=== PATIENT | female | born 1985 | race Caucasian/White ===

== ENCOUNTER 2019-01-25 17:03 | Emergency (ER) | payer OTHER ==
[2019-01-25 17:24] VITALS: TEMP 97.1
[2019-01-25] MEDS ORDERED: SODIUM CHLORIDE 0.9% 1,000 ML IV STA (17:48)
[2019-01-25 18:14] LABS: Amorphous Sediment,Urine Few /hpf; Appearance,Urine Turbid (Clear); Bilirubin,Urine Negative (Negative); Blood,Urine Small (Negative); Color,Urine Light Yellow; Glucose,Urine (UA) Negative (Negative); Ketones,Urine Negative (Negative); Leukocyte Esterase,Urine Negative (Negative); Mucus,Urine Rare /hpf; Nitrite,Urine Negative (Negative); Protein,Urine Negative (Negative); RBC,Urine 33 /hpf (0-5); Specific Gravity,Urine 1.016 (1.001-1.035); Squamous Epithelial Cell,Urine 1 /hpf (0-4); Urobilinogen,Urine <2.0 mg/dL (<2.0)
[2019-01-25 20:11] LABS: Basophils % (A) 0 %; Eosinophils % (A) 0 %; HCT 37.3 % (34.0-46.0); HGB 11.8 gm/dL (11.4-16.0); Hypochromasia Slight; Lymphocytes # (A) 1.1 k/uL (1.0-4.8); Lymphocytes % (A) 9 %; MCH 26.3 pg (25.0-35.0); MCHC 31.6 g/dL (31.0-37.0); Monocytes # (A) 0.3 k/uL (0-1.0); Monocytes % (A) 2 %; Neutrophils # (A) 11.1 k/uL (1.3-7.7); Neutrophils % (A) 88 %; Platelet Count 330 k/uL (150-450); RDW 15.3 % (11.5-15.5); WBC 12.5 k/uL (3.8-10.6)
[2019-01-25 20:13] LABS: ALT 16 U/L (9-52); AST 28 U/L (14-36); African American GFR (CKD) >90 (>60 ml/min/1.73 sqM); Albumin 4.1 g/dL (3.5-5.0); Alkaline Phosphatase 56 U/L (38-126); Anion Gap 9 mmol/L; Blood Urea Nitrogen 15 mg/dL (7-17); Calcium 8.8 mg/dL (8.4-10.2); Carbon Dioxide 21 mmol/L (22-30); Chloride 112 mmol/L (98-107); Glucose 74 mg/dL (74-99); Sodium 142 mmol/L (137-145); Total Bilirubin 0.3 mg/dL (0.2-1.3); Total Protein 6.9 g/dL (6.3-8.2)
[2019-01-25 20:15] LABS: Potassium 4.2 mmol/L (3.5-5.1)
--- NOTE | 2019-01-25 20:28 | CT ---
EXAMINATION TYPE: CT abdomen pelvis w con DATE OF EXAM: 01/25/2019 COMPARISON: NONE HISTORY: 33-year-old female RLQ pain TECHNIQUE: Contiguous axial scanning of the abdomen and pelvis following administration of 100 ml Iso muriel 300 IV contrast. Delayed images through the kidneys and coronal/sagittal reconstructions perform ed. CT DLP: 787.4 mGycm Automated exposure control for dose reduction was used. FINDINGS: Heart normal size without pericardial effusion. Lung bases clear without pleural effusion. No focal liver lesion or biliary ductal dilatation. Portal venous system is seen. Gallbladder, adrenal glands, left kidney, spleen, and pancreas appear within normal limits. 3 nonobstructive right renal calculi measuring up to 4 mm. There is mild right-sided pelvocaliectasis and mild ureteral dilatation. There may be mild urothelial enhancement of the right ureter is well. No suspicious calcifications seen along the course of the right ureter. Overall enhancement of the ri ght kidney is symmetrical to the contralateral side. No dilated small bowel, free fluid, or free air. No mesenteric or retroperitoneal lymphadenopathy. Mild overall stool burden. No pericolonic inflammatory change. Uterus anteverted. Ovaries are visualized. Mild cul-de-sac free fluid likely physiologic. Platelets i n the left side of the pelvis. Bones: No osseous destructive process. IMPRESSION: 1. MILD RIGHT-SIDED PELVICALIECTASIS AND MILD RIGHT URETERIC DILATATION. THERE MAY BE SOME MILD UROTH ELIAL ENHANCEMENT WELL. CORRELATE FOR THE POSSIBILITY OF A RECENTLY PASSED STONE OR AN ASCENDING R IGHT-SIDED URINARY TRACT INFECTION. OVERALL SYMMETRICAL ENHANCEMENT OF THE KIDNEYS ARGUING AGAINST TH E PRESENCE OF PYELONEPHRITIS AT THIS TIME. CLINICALLY CORRELATE. 2. NONOBSTRUCTIVE RIGHT-SIDED NEPHROLITHIASIS MEASURING UP TO 4 MM.
[2019-01-25] MEDS ORDERED: MORPHINE SULFATE 4 MG/ML SYRINGE IVP STA (21:27)
[2019-01-25] MEDS ORDERED: ONDANSETRON 4 MG/2 ML VIAL IVP STA (21:27)
--- NOTE | 2019-01-25 21:37 | ED ---
Abdominal Pain HPI - General Chief Complaint: Abdominal Pain Stated Complaint: Abd Pain Time Seen by Provider: 01/25/19 17:20 Source: patient, EMS Mode of arrival: EMS Limitations: no limitations - History of Present Illness Initial Comments: The patient is a 33-year-old female presents to the emergency department with reported abdominal pain. She describes it as a aching sensation which is located in her right lower quadrant. States that she's had worsening of this pain over the past 2 days. States that it will wax and wane on her. The pain became persistent just prior to hospital arrival. She began having several episodes of nausea with vomiting. Denies hematemesis. She reports to chills however no fevers. Reports that she has dysuria and hematuria. Denies any difficulty urinating. No history of similar in the past. She denies any abnormal vaginal bleeding or discharge. Her last menstrual cycle was 2-3 weeks ago. She is unsure if she is . She denies any chest pain or shortness of breath. Denies any diarrhea, constipation, melanotic stools or hematochezia. There are no other alleviating, precipitating or modifying factors Location: [facility] - Related Data Home Medications Medication Instructions Recorded Confirmed Bismuth Subsalicylate 524 mg PO DAILY PRN 01/25/19 01/25/19 [Pepto-Bismol] Calcium Carbonate [Tums] 500 mg PO TID PRN 01/25/19 01/25/19 Cetirizine HCl [Zyrtec] 10 mg PO DAILY 01/25/19 01/25/19 Dextroamphetamine/Amphetamine 30 mg PO BID 01/25/19 01/25/19 [Adderall] EPINEPHrine (Auto Inject) [Epipen] 0.3 mg IM ONCE PRN 01/25/19 01/25/19 Ferrous Sulfate [Feosol] 325 mg PO DAILY 01/25/19 01/25/19 Omeprazole 20 mg PO BID 01/25/19 01/25/19 Rizatriptan Benzoate [Maxalt] 10 mg PO DAILY PRN 01/25/19 01/25/19 Topiramate [Topamax] 100 mg PO DAILY 01/25/19 01/25/19 Vitamin D 5,000units 10,000 units PO DAILY 09/01/19 09/01/19 Previous Rx's Medication Instructions Recorded Hydrocodone/Acetaminophen [[place] 1 tab PO Q6HR PRN #12 tab 01/25/19 5-325] Ibuprofen [Motrin] 600 mg PO Q8HR PRN #20 tab 01/25/19 Ondansetron Odt [Zofran Odt] 4 mg PO Q8HR PRN #15 tab 01/25/19 Allergies Allergy/AdvReac Type Severity Reaction Status Date / Time No Known Allergies Allergy Unverified 01/25/19 18:16 Review of Systems ROS Statement: Those systems with pertinent positive or pertinent negative responses have been documented in the HPI. ROS Other: All systems not noted in ROS Statement are negative. Past Medical History Past Medical History: Asthma Additional Past Medical History / Comment(s): migraines History of Any Multi-Drug Resistant Organisms: None Reported Past Surgical History: Section Additional Past Surgical History / Comment(s): cyst removal Past Psychological History: No Psychological Hx Reported Smoking Status: Current every day smoker Past Alcohol Use History: Occasional Past Drug Use History: Marijuana General Exam Limitations: no limitations General appearance: alert, in no apparent distress Head exam: Present: atraumatic, normocephalic, normal inspection Eye exam: Present: normal appearance, PERRL, EOMI. Absent: scleral icterus, conjunctival injection, periorbital swelling ENT exam: Present: normal exam, mucous membranes moist Neck exam: Present: normal inspection. Absent: tenderness, meningismus, lymphadenopathy Respiratory exam: Present: normal lung sounds bilaterally. Absent: respiratory distress, wheezes, rales, rhonchi, stridor Cardiovascular Exam: Present: regular rate, normal rhythm, normal heart sounds. Absent: systolic murmur, diastolic murmur, rubs, gallop, clicks GI/Abdominal exam: Present: soft, tenderness (right lower quadrant tenderness. No peritoneal signs), normal bowel sounds. Absent: distended, guarding, rebound, rigid Extremities exam: Present: normal inspection, full ROM, normal capillary refill. Absent: tenderness, pedal edema, joint swelling, calf tenderness Back exam: Present: normal inspection Neurological exam: Present: alert, oriented X3, CN II-XII intact Psychiatric exam: Present: normal affect, normal mood Skin exam: Present: warm, dry, intact, normal color. Absent: rash Course Vital Signs 01/25/19 01/25/19 01/25/19 17:16 19:50 21:35 Temperature 97.1 F L Pulse Rate 51 L 60 61 Respiratory 16 16 18 Rate Blood Pressure 163/89 126/79 127/85 O2 Sat by Pulse 99 96 99 Oximetry 01/25/19 21:43 Temperature 97.1 F L Pulse Rate 61 Respiratory 18 Rate Blood Pressure 127/85 O2 Sat by Pulse 99 Oximetry Medical Decision Making - Medical Decision Making Upon arrival the patient is placed into room 28. She is hooked up to continuous pulse ox and cardiac monitoring. A 12-lead EKG is performed the patient. Peripheral IV had been previously established by EMS. They did provide her with 4 mg of Zofran and 4 mg of morphine. I did provide the patient with a liter of normal saline. Laboratory studies were conducted. The patient was sent for a CT of her abdomen and pelvis. Upon return of the results the patient does have red blood cells in her urine. CT of her abdomen and pelvis demonstrates mild right-sided pelvicaliectasis and mild right ureter dilation. Correlate for the possibility of a recently passed stone. There is also nonobstructive right- sided nephrolithiasis measuring up to 4 mm. I did inform the patient of the laboratory studies. The patient reports that she does believe that she passed the stone in the bathroom approximately 10 minutes before I arrived into the room. She does state that she feels nauseated and has pain because of it. I did provide her with an additional 4 mg of morphine and 4 mg of Zofran. At this time the patient's feels appropriate for discharge. She will be given a prescription for Zofran, Motrin and [place]. She does sign an opioid talking form. I did request that she follow up with Dr. Barros from urology. She is also to follow-up with her primary care physician in 2-4 days. If the patient has any new or worsening symptoms, she should return to the emergency room. The patient was in agreement with the treatment plan and she was discharged home in stable condition - Lab Data Result diagrams: 01/25/19 17:56 01/25/19 17:56 Lab Results 01/25/19 01/25/19 01/25/19 Range/Units 17:56 17:56 17:56 WBC 12.5 H (3.8-10.6) k/uL RBC 4.50 (3.80-5.40) m/uL Hgb 11.8 (11.4-16.0) gm/dL Hct 37.3 (34.0-46.0) % MCV 83.0 (80.0-100.0) fL MCH 26.3 (25.0-35.0) pg MCHC 31.6 (31.0-37.0) g/dL RDW 15.3 (11.5-15.5) % Plt Count 330 (150-450) k/uL Neutrophils % 88 % Lymphocytes % 9 % Monocytes % 2 % Eosinophils % 0 % Basophils % 0 % Neutrophils # 11.1 H (1.3-7.7) k/uL Lymphocytes # 1.1 (1.0-4.8) k/uL Monocytes # 0.3 (0-1.0) k/uL Eosinophils # 0.0 (0-0.7) k/uL Basophils # 0.0 (0-0.2) k/uL Hypochromasia Slight Sodium 142 (137-145) mmol/L Potassium 4.2 (3.5-5.1) mmol/L Chloride 112 H (98-107) mmol/L Carbon Dioxide 21 L (22-30) mmol/L Anion Gap 9 mmol/L BUN 15 (7-17) mg/dL Creatinine 0.75 (0.52-1.04) mg/dL Est GFR (CKD-EPI)AfAm >90 (>60 ml/min/1.73 sqM) Est GFR (CKD-EPI)NonAf >90 (>60 ml/min/1.73 sqM) Glucose 74 (74-99) mg/dL Plasma Lactic Acid Rojas 1.4 (0.7-2.0) mmol/L Calcium 8.8 (8.4-10.2) mg/dL Total Bilirubin 0.3 (0.2-1.3) mg/dL AST 28 (14-36) U/L ALT 16 (9-52) U/L Alkaline Phosphatase 56 (38-126) U/L Total Protein 6.9 (6.3-8.2) g/dL Albumin 4.1 (3.5-5.0) g/dL Lipase 187 (23-300) U/L Urine Color Urine Appearance (Clear) Urine pH (5.0-8.0) Ur Specific [place] (1.001-1.035) Urine Protein (Negative) Urine Glucose (UA) (Negative) Urine Ketones (Negative) Urine Blood (Negative) Urine Nitrite (Negative) Urine Bilirubin (Negative) Urine Urobilinogen (<2.0) mg/dL Ur Leukocyte Esterase (Negative) Urine RBC (0-5) /hpf Ur Squamous Epith Cells (0-4) /hpf Amorphous Sediment (None) /hpf Urine Mucus (None) /hpf Urine HCG, Qual (Not Detectd) 01/25/19 01/25/19 Range/Units Unknown Unknown WBC (3.8-10.6) k/uL RBC (3.80-5.40) m/uL Hgb (11.4-16.0) gm/dL Hct (34.0-46.0) % MCV (80.0-100.0) fL MCH (25.0-35.0) pg MCHC (31.0-37.0) g/dL RDW (11.5-15.5) % Plt Count (150-450) k/uL Neutrophils % % Lymphocytes % % Monocytes % % Eosinophils % % Basophils % % Neutrophils # (1.3-7.7) k/uL Lymphocytes # (1.0-4.8) k/uL Monocytes # (0-1.0) k/uL Eosinophils # (0-0.7) k/uL Basophils # (0-0.2) k/uL Hypochromasia Sodium (137-145) mmol/L Potassium (3.5-5.1) mmol/L Chloride (98-107) mmol/L Carbon Dioxide (22-30) mmol/L Anion Gap mmol/L BUN (7-17) mg/dL Creatinine (0.52-1.04) mg/dL Est GFR (CKD-EPI)AfAm (>60 ml/min/1.73 sqM) Est GFR (CKD-EPI)NonAf (>60 ml/min/1.73 sqM) Glucose (74-99) mg/dL Plasma Lactic Acid Rojas (0.7-2.0) mmol/L Calcium (8.4-10.2) mg/dL Total Bilirubin (0.2-1.3) mg/dL AST (14-36) U/L ALT (9-52) U/L Alkaline Phosphatase (38-126) U/L Total Protein (6.3-8.2) g/dL Albumin (3.5-5.0) g/dL Lipase (23-300) U/L Urine Color Light Yellow Urine Appearance Turbid H (Clear) Urine pH 8.0 (5.0-8.0) Ur Specific [place] 1.016 (1.001-1.035) Urine Protein Negative (Negative) Urine Glucose (UA) Negative (Negative) Urine Ketones Negative (Negative) Urine Blood Small H (Negative) Urine Nitrite Negative (Negative) Urine Bilirubin Negative (Negative) Urine Urobilinogen <2.0 (<2.0) mg/dL Ur Leukocyte Esterase Negative (Negative) Urine RBC 33 H (0-5) /hpf Ur Squamous Epith Cells 1 (0-4) /hpf Amorphous Sediment Few H (None) /hpf Urine Mucus Rare H (None) /hpf Urine HCG, Qual Not Detected (Not Detectd) - EKG Data EKG Comments: EKG demonstrates a normal sinus rhythm with a ventricular rate of 56. PA interval 182. QRS 74. QTC 451. There are no acute ST segment elevations or depressions concerning for ischemic changes. Disposition Clinical Impression: Hematuria, Kidney stone Disposition: HOME SELF-CARE Condition: Stable Instructions (If sedation given, give patient instructions): Kidney Stones (ED) Additional Instructions: Please follow-up with your primary care doctor in 2-4 days. Follow up with the urologist within one week. Return to the emergency room for any new or worsening symptoms. Prescriptions: Ibuprofen [Motrin] 600 mg PO Q8HR PRN #20 tab PRN Reason: Pain Hydrocodone/Acetaminophen [[place] 5-325] 1 tab PO Q6HR PRN #12 tab PRN Reason: Pain Ondansetron Odt [Zofran Odt] 4 mg PO Q8HR PRN #15 tab PRN Reason: Nausea Is patient prescribed a controlled substance at d/c from ED?: Yes When asked, does pt state using other controlled substances?: No If prescribed controlled substance>3 days was MAPS reviewed?: Prescribed <3 Days If opioid is for acute pain is fill amount 7 days or less?: Yes If Rx opioid, was Start Talking consent form obtained?: Yes Referrals: Yoni Lee Jr, [Primary Care Provider] - 1-2 days Jonathan Peters MD [STAFF PHYSICIAN] - 1-2 days Time of Disposition: 21:36
[2019-01-25 21:38] VITALS: BP 127/85; PULSE 61; RESP 18
== END 2019-01-25 22:01 | disposition home or self-care (01) ==
LOC: EC 17:03
DX: N20.0 Calculus of kidney (principal); N28.82 Megaloureter; G43.909 Migraine, unspecified, not intractable, without status migrainosus; F17.200 Nicotine dependence, unspecified, uncomplicated; Z79.899 Other long term (current) drug therapy
CPT/HCPCS: 99285; 96374; 96375; 96360; 96361 ×3; 36415; 93005; 80053; 83605; 83690; 85025; 81001; 81025; 74177; J2270; J2405; Q9967

== ENCOUNTER → 2020-04-27 | Outpatient (CLI) | payer OTHER ==
--- NOTE | 2020-04-27 12:03 | US ---
EXAMINATION TYPE: US abdomen complete DATE OF EXAM: 04/27/2020 COMPARISON: CT dated 01/25/2019 CLINICAL HISTORY: N83.201 cyst of right ovary. RLQ pain EXAM MEASUREMENTS: Liver Length: 13.5 cm Gallbladder Wall: 0.2 cm CBD: 0.3 cm Spleen: 10.1 cm Right Kidney: 11.4 x 4.3 x 4.8 cm Left Kidney: 11.5 x 5.0 x 4.3 cm Pancreas: visualized portions appear wnl Liver: wnl Gallbladder: no evidence of stones Evidence for sonographic Belcher's sign: no CBD: wnl Spleen: wnl Right Kidney: echogenic area lower pole = 0.5cm Left Kidney: no evidence of hydronephrosis Upper IVC: wnl Abd Aorta: wnl The liver is homogenous. The intrahepatic portion of the IVC and proximal abdominal aorta are within normal limits. There is no evidence of cholelithiasis. Common bile duct is unremarkable. The visu alized portions of the pancreas are homogenous. The spleen is unremarkable. Kidneys are symmetric a nd free of hydronephrosis. No renal lesions are seen. IMPRESSION: Likely there is nonobstructive calculus lower pole right kidney
--- NOTE | 2020-04-27 12:06 | US ---
EXAMINATION TYPE: US pelvic complete DATE OF EXAM: 04/27/2020 COMPARISON: CT 01/25/2019 CLINICAL HISTORY: N83.201 cyst of right ovary. RLQ pain for 3 months. History of and cyst r emoval from right ovary TECHNIQUE: Transabdominal (TA). Date of LMP: 2 weeks ago EXAM MEASUREMENTS: Uterus: 10.4 x 4.4 x 6.9 cm Endometrial Stripe: 0.3 cm Right Ovary: 3.2 x 1.5 x 3.5 cm Left Ovary: 5.4 x 3.3 x 4.6 cm 1. Uterus: Anteverted heterogeneous 2. Endometrium: appears wnl 3. Right Ovary: dominant follicle = 1.3cm 4. Left Ovary: cystic area = 4.8 x 2.8 x 4.3cm 5. Bilateral Adnexa: wnl 6. Posterior cul-de-sac: wnl IMPRESSION: There is a left ovarian cyst present. Dominant right ovarian follicle noted is smaller.
== END | disposition home or self-care (01) ==
LOC: RADUSWWP 09:07
PROVIDERS: ATTEND Family Medicine
DX: N83.202 Unspecified ovarian cyst, left side (principal)
CPT/HCPCS: 76700; 76856

== ENCOUNTER → 2021-02-27 | Outpatient (CLI) | payer OTHER ==
--- NOTE | 2021-02-27 11:42 | CT ---
EXAMINATION TYPE: CT brain wo con DATE OF EXAM: 02/27/2021 COMPARISON: None. HISTORY: Headache, numbness, tingling in both hands and face for [address] DLP: 1036.0 mGycm. Automated Exposure Control for Dose Reduction was Utilized. TECHNIQUE: CT scan of the head is performed without contrast. FINDINGS: There is no acute intracranial hemorrhage, mass effect, or midline shift identified. The ventricles and sulci are within normal limits in size. Logan-white matter differentiation is maintai aggie. The globes are intact and the visualized sinuses are clear. IMPRESSION: Unremarkable study. MRI noted more sensitive in identifying subtle white matter changes.
== END | disposition home or self-care (01) ==
LOC: RADCTMAIN 02-24 16:21
PROVIDERS: ATTEND Family Medicine
DX: R51.9 Headache, unspecified (principal); R20.0 Anesthesia of skin
CPT/HCPCS: 70450

== ENCOUNTER → 2021-11-06 | Outpatient (CLI) | payer OTHER ==
--- NOTE | 2021-11-06 09:21 | US ---
EXAMINATION TYPE: US pelvis complete transvag DATE OF EXAM: 11/06/2021 COMPARISON: CT, US CLINICAL HISTORY: R10.10 UPPER AB PAIN R11.2 NAUSEA. Pain. Hx C section, cyst removed from right ova ry. Patient is on control pills. . TECHNIQUE: Transvaginal (TV) and Transabdominal (TA) . Transabdominal sonographic images of the pel vis were acquired. Transvaginal sonographic images were medically necessary to better assess the fol lowing anatomy: Ovaries Date of LMP: Unknown per patient. EXAM MEASUREMENTS: Uterus: 12.0 x 6.1 x 8.0 cm Endometrial Stripe: 0.34 cm Right Ovary: Not seen Area seen in left adnexa that appears to be the left ovary: 7.8 x 4.6 x 4.4 cm 1. Uterus: Anteverted Limited. Appears heterogeneous and enlarged. Subcentimeter anechoic areas se en in cervix, some appear to be septated. 2. Endometrium: Limited, measured at 0.34 cm. 3. Right Ovary: Not seen. 4. Possible Left Ovary: Appears enlarged. Mostly anechoic area seen with some internal echoes: 6.8 x 4.2 x 3.8 cm. Spectral, color and waveform doppler imaging shows arterial and venous flow within what appears to be the left ovary. Right ovary not seen. 5. Bilateral Adnexa: Appear wnl 6. Posterior cul-de-sac: Fluid seen IMPRESSION: 1. Nonspecific uterine enlargement and heterogeneity. 2. Cervical nabothian cysts. 3. Enlarging left ovarian cyst currently measuring 6.8 x 4.2 x 3.8 cm versus 4.8 x 2.8 x 4.3 cm previ ously.
--- NOTE | 2021-11-06 09:24 | US ---
EXAMINATION TYPE: US abdomen complete DATE OF EXAM: 11/06/2021 COMPARISON: CT, US CLINICAL HISTORY: R10.10 UPPER AB PAIN R11.2 NAUSEA. Pain. Hx kidney stones. EXAM MEASUREMENTS: Liver Length: 15.6 cm Gallbladder Wall: 0.2 cm CBD: 0.3 cm Spleen: 9.1 cm Right Kidney: 12.0 x 6.1 x 4.3 cm Left Kidney: 12.5 x 5.6 x 5.2 cm Limited due to gas. Pancreas: Limited due to gas. Liver: Appears coarse in echotexture. Gallbladder: Fold seen. Appears anechoic. Evidence for sonographic Belcher's sign: No CBD: Portions seen appear wnl Spleen: Appears wnl Right Kidney: Renal pelvis appears dilated medially. Measures upper limits. Left Kidney: Appears slightly enlarged. Upper IVC: Appears wnl Abd Aorta: Iliacs appear to measure upper limits at 1.5 cm in transverse bilaterally. IMPRESSION: 1. Hepatic steatosis suggested. 2. Prominence of the right renal pelvis.
== END | disposition home or self-care (01) ==
LOC: RADUSWWP 07:17
PROVIDERS: ATTEND Family Medicine
DX: N88.8 Other specified noninflammatory disorders of cervix uteri (principal); N83.202 Unspecified ovarian cyst, left side
CPT/HCPCS: 76700; 76830; 76856

== ENCOUNTER → 2022-01-08 | Outpatient (CLI) | payer OTHER ==
--- NOTE | 2022-01-08 21:20 | NM ---
EXAMINATION TYPE: NM hepatobiliary w EF DATE OF EXAM: 01/08/2022 COMPARISON: 11/06/2021 abdominal ultrasound, CT abdomen 01/25/2019. EXAMINATION TYPE: NM hepatobiliary w EF DATE OF EXAM: 01/08/2022 5:28 PM CLINICAL INDICATION:Female, 36 years old with history of R10.9 abdominal pain; TECHNIQUE: After the intravenous administration of 4.03 mCi Tc 99m Mebrofenin hepatobiliary scintigra phy is performed. Immediate images post injection. FINDINGS: There is satisfactory initial accumulation of tracer by the liver. The gallbladder is not definitive ly take up radiotracer on this examination including delayed imaging. The small bowel activity is no roseann within 2 minutes. Questionable gallbladder filling seen on delayed imaging which is partially ob scured by overlapping bowel. IMPRESSION: The gallbladder does not definitively uptake the radiotracer and on delayed imaging and area which ma y represent the gallbladder is partially obscured by overlapping bowel. Overall the exam is nondiagno stic for ejection fraction. Underlying chronic cholecystitis is not entirely excluded. Consider dedic ated right upper quadrant ultrasound for further evaluation of the gallbladder if not recently perfor med.
== END | disposition home or self-care (01) ==
LOC: RADNMMAIN 12:43
PROVIDERS: ATTEND Family Medicine
DX: R10.9 Unspecified abdominal pain (principal)
CPT/HCPCS: 78226; A9537

== ENCOUNTER 2022-02-09 19:12 | Emergency (ER) | payer OTHER ==
[2022-02-09 20:21] VITALS: TEMP 98.4
--- NOTE | 2022-02-09 20:51 | XR ---
EXAMINATION TYPE: XR chest 2V DATE OF EXAM: 02/09/2022 COMPARISON: 11/10/2012 HISTORY: Chest pain TECHNIQUE: 2 views FINDINGS: Heart is normal. Lungs are clear of consolidation. There are no hilar masses. Bony thorax i s intact. IMPRESSION: Normal chest. No change.
[2022-02-09 20:53] LABS: Basophils # (A) 0.1 k/uL (0-0.2); Basophils % (A) 1 %; Eosinophils # (A) 0.1 k/uL (0-0.7); Eosinophils % (A) 1 %; HCT 41.5 % (34.0-46.0); HGB 13.1 gm/dL (11.4-16.0); Lymphocytes # (A) 2.4 k/uL (1.0-4.8); Lymphocytes % (A) 26 %; MCH 25.7 pg (25.0-35.0); MCHC 31.5 g/dL (31.0-37.0); MCV 81.7 fL (80.0-100.0); Monocytes # (A) 0.4 k/uL (0-1.0); Monocytes % (A) 5 %; Neutrophils % (A) 66 %; Platelet Count 409 k/uL (150-450); RBC 5.08 m/uL (3.80-5.40); WBC 9.1 k/uL (3.8-10.6)
[2022-02-09 21:03] LABS: ALT 20 U/L (4-34); AST 26 U/L (14-36); African American GFR (CKD) >90 (>60 ml/min/1.73 sqM); Albumin 4.5 g/dL (3.5-5.0); Alkaline Phosphatase 82 U/L (38-126); Amylase 71 U/L (30-110); Anion Gap 13 mmol/L; Blood Urea Nitrogen 14 mg/dL (7-17); Calcium 9.4 mg/dL (8.4-10.2); Carbon Dioxide 19 mmol/L (22-30); Chloride 106 mmol/L (98-107); Glucose 82 mg/dL (74-99); Lipase 352 U/L (23-300); Non-African American GFR(CKD) >90 (>60 ml/min/1.73 sqM); Potassium 3.6 mmol/L (3.5-5.1); Sodium 138 mmol/L (137-145); Total Bilirubin 0.2 mg/dL (0.2-1.3); Total Protein 7.3 g/dL (6.3-8.2)
[2022-02-09 21:06] LABS: INR 0.9 (<1.2); Partial Thromboplastin Time 24.1 sec (22.0-30.0); Prothrombin Time 10.3 sec (9.0-12.0)
--- NOTE | 2022-02-09 21:55 | ED ---
Chest Pain HPI - General Chief Complaint: Chest Pain Stated Complaint: chest pain Time Seen by Provider: 02/09/22 21:50 Source: patient, RN notes reviewed, old records reviewed Mode of arrival: ambulatory Limitations: no limitations - History of Present Illness Initial Comments: This is a 36-year-old female to the [facility]. She presents today for evaluation of chest pain left-sided chest pain with some epigastric abdominal pain has a history of gallbladder issues. No recent trauma no fevers. Sensation states the pain has been going on all day. She also vomiting today. Mild current nausea, no sick contacts no travel history no history of heart disease MD Complaint: chest pain, other (Abdominal pain) -: hour(s) Onset: after eating Pain Location: substernal, epigastric Pain Radiation: back, jaw/teeth Severity scale (1-10): 6 Quality: tightness, aching, heaviness Consistency: intermittent Improves With: nothing Worsens With: nothing Context: recent illness Anginal Symptoms: nausea Other Symptoms: acid taste in mouth Treatments Prior to Arrival: none - Related Data On Oral Contraceptives: No Home Medications Medication Instructions Recorded Confirmed Bismuth Subsalicylate 524 mg PO DAILY PRN 01/25/19 01/25/19 [Pepto-Bismol] Calcium Carbonate [Tums] 500 mg PO TID PRN 01/25/19 01/25/19 Cetirizine HCl [Zyrtec] 10 mg PO DAILY 01/25/19 01/25/19 Dextroamphetamine/Amphetamine 30 mg PO BID 01/25/19 01/25/19 [Adderall] EPINEPHrine (Auto Inject) [Epipen] 0.3 mg IM ONCE PRN 01/25/19 01/25/19 Ferrous Sulfate [Feosol] 325 mg PO DAILY 01/25/19 01/25/19 Omeprazole 20 mg PO BID 01/25/19 01/25/19 Rizatriptan Benzoate [Maxalt] 10 mg PO DAILY PRN 01/25/19 01/25/19 Topiramate [Topamax] 100 mg PO DAILY 01/25/19 01/25/19 Vitamin D 5,000units 10,000 units PO DAILY 01/25/19 01/25/19 Previous Rx's Medication Instructions Recorded Hydrocodone/Acetaminophen [[place] 1 tab PO Q6HR PRN #12 tab 01/25/19 5-325] Ibuprofen [Motrin] 600 mg PO Q8HR PRN #20 tab 01/25/19 Ondansetron Odt [Zofran Odt] 4 mg PO Q8HR PRN #15 tab 01/25/19 Allergies Allergy/AdvReac Type Severity Reaction Status Date / Time No Known Allergies Allergy Unverified 01/25/19 18:16 Review of Systems ROS Statement: Those systems with pertinent positive or pertinent negative responses have been documented in the HPI. ROS Other: All systems not noted in ROS Statement are negative. Past Medical History Past Medical History: Asthma Additional Past Medical History / Comment(s): migraines History of Any Multi-Drug Resistant Organisms: None Reported Past Surgical History: Section Additional Past Surgical History / Comment(s): cyst removal Past Psychological History: No Psychological Hx Reported Smoking Status: Never smoker Past Alcohol Use History: Occasional Past Drug Use History: Marijuana General Exam Limitations: no limitations General appearance: alert, in no apparent distress Head exam: Present: atraumatic, normocephalic, normal inspection Eye exam: Present: normal appearance, PERRL, EOMI. Absent: scleral icterus, conjunctival injection, periorbital swelling ENT exam: Present: normal exam, mucous membranes moist Neck exam: Present: normal inspection. Absent: tenderness, meningismus, lymphadenopathy Respiratory exam: Present: normal lung sounds bilaterally. Absent: respiratory distress, wheezes, rales, rhonchi, stridor Cardiovascular Exam: Present: regular rate, normal rhythm, normal heart sounds. Absent: systolic murmur, diastolic murmur, rubs, gallop, clicks GI/Abdominal exam: Present: soft, normal bowel sounds. Absent: distended, tenderness, guarding, rebound, rigid Extremities exam: Present: normal inspection, full ROM, normal capillary refill. Absent: tenderness, pedal edema, joint swelling, calf tenderness Back exam: Present: normal inspection Neurological exam: Present: alert, oriented X3, CN II-XII intact Psychiatric exam: Present: normal affect, normal mood Skin exam: Present: warm, dry, intact, normal color. Absent: rash Course Vital Signs 02/09/22 02/10/22 20:17 00:32 Temperature 98.4 F Pulse Rate 91 63 Respiratory 20 16 Rate Blood Pressure 161/105 O2 Sat by Pulse 99 99 Oximetry - Reevaluation(s) Reevaluation #1: 02/09/22 22:48 Medical record is reviewed Reevaluation #2: 02/10/22 00:38 Patient resting comfortably sleeping Reevaluation #3: 02/10/22 00:38 Patient informed results and questions answered Chest Pain MDM - MDM 36 female DEL with chest pain nausea vomiting not feeling well. Symptoms resolved here in the ER feels well, patient be given symptomatically therapy at home. Testing is negative here in the ER the patient can be discharged home Disposition Clinical Impression: Atypical chest pain, Chest pain Disposition: HOME SELF-CARE Condition: Fair Instructions (If sedation given, give patient instructions): Chest Pain (ED) Is patient prescribed a controlled substance at d/c from ED?: No Referrals: Yoni Lee Jr, [Primary Care Provider] - 1-2 days Time of Disposition: 00:45
[2022-02-09 22:31] LABS: Appearance,Urine Clear (Clear); Bilirubin,Urine Negative (Negative); Blood,Urine Negative (Negative); Color,Urine Light Yellow; Glucose,Urine (UA) Negative (Negative); Ketones,Urine Negative (Negative); Leukocyte Esterase,Urine Negative (Negative); Nitrite,Urine Negative (Negative); Protein,Urine Negative (Negative); Specific Gravity,Urine 1.023 (1.001-1.035); Urobilinogen,Urine <2.0 mg/dL (<2.0)
[2022-02-09] MEDS ORDERED: PROCHLORPERAZINE INJ 10 MG/2 ML VIAL IVP STA (22:34)
[2022-02-09] MEDS ORDERED: KETOROLAC 15 MG/ML 1 ML VIAL IVP STA (22:34)
[2022-02-09] MEDS ORDERED: diphenhydrAMINE 50 MG/ML 1 ML VIAL IVP STA (22:34)
--- NOTE | 2022-02-10 00:14 | CT ---
EXAMINATION TYPE: CT angio chest DATE OF EXAM: 02/09/2022 COMPARISON: None HISTORY: chest pain CT DLP: 587 mGycm Automated exposure control for dose reduction was used. CONTRAST: Performed with IV Contrast, patient injected with 100 mL of Isovue 370. There are Three-D postprocessed images. The lungs are clear of consolidation. No pleural effusion. Heart size is normal. No pericardial effus ion. There is no mediastinal adenopathy. There are no hilar masses. There is normal contrast opacification of the pulmonary arteries. No filling defect. Thoracic aorta i s intact. No aneurysm or dissection. The thoracic spine is intact. Sternum is intact. IMPRESSION: Normal CT angiogram of the chest. No evidence of pulmonary embolism.
--- NOTE | 2022-02-10 00:18 | CT ---
EXAMINATION TYPE: CT abdomen pelvis w con DATE OF EXAM: 02/09/2022 COMPARISON: 01/25/2019 HISTORY: chest pain CT DLP: 587 mGycm Automated exposure control for dose reduction was used. CONTRAST: Performed with IV Contrast, patient injected with 100 mL of Isovue 370. Images obtained from the diaphragm to the floor of the pelvis with the IV contrast. The lung bases are clear. No pleural effusion. Heart size is normal. Liver spleen and stomach pancreas gallbladder appear intact. The bile ducts are not dilated. There is no adrenal mass. Kidneys show satisfactory contrast opacification. There is no hydronephrosis. Urete rs are not dilated. Bladder distends smoothly. There is 8.5 cm cyst in the pelvis on the left side li elias an ovarian cyst. No inguinal hernia. No free fluid in the pelvis. There is no mesenteric edema. No ascites or free air. No sign of a bowel obstruction. Appendix not cl early seen. No sign of thickened appendix. Delayed images show normal renal excretion. The lumbar vertebrae have normal alignment. No compression fracture. Posterior elements are intact. F acet joints are intact. Bony pelvis is intact. The hip joints appear normal. IMPRESSION: Large left ovarian cyst. Cyst appears new compared to the old exam. Appendix not seen.
[2022-02-10 00:32] VITALS: PULSE 63; RESP 16
[2022-02-10] MEDS ORDERED: ONDANSETRON 4 MG ODT STARTER PACK 2 TAB BTL PO STA (00:39)
[2022-02-10] MEDS ORDERED: ACET/COD 300 MG/30 MG STARTER PACK 6 TAB BTL PO STA (00:39)
[2022-02-10 00:52] VITALS: BP 146/109
== END 2022-02-10 00:52 | disposition home or self-care (01) ==
LOC: EC 19:12
DX: R07.89 Other chest pain (principal); J45.909 Unspecified asthma, uncomplicated; F12.90 Cannabis use, unspecified, uncomplicated; Z79.899 Other long term (current) drug therapy
CPT/HCPCS: 36415; 93005; 85379; 83880; 80053; 82150; 83690; 83735; 84484; 85025; 85610; 85730; 81003; 71046; 71275; 74177; 99285; 96374; 96375 ×2; J1200; J0780; J1885; Q9967

== ENCOUNTER 2023-02-06 12:25 | Outpatient (CLI) | payer OTHER ==
[2023-02-06 13:22] LABS: Appearance,Urine Cloudy (Clear); Bacteria,Urine Many /hpf; Bilirubin,Urine Negative (Negative); Blood,Urine Negative (Negative); Color,Urine Colorless; Glucose,Urine (UA) Negative (Negative); Ketones,Urine Negative (Negative); Leukocyte Esterase,Urine Negative (Negative); Nitrite,Urine Negative (Negative); PH, Urine 6.5 (5.0-8.0); Protein,Urine Negative (Negative); Specific Gravity,Urine 1.007 (1.001-1.035); Squamous Epithelial Cell,Urine <1 /hpf (0-4); Urobilinogen,Urine <2.0 mg/dL (<2.0); WBC,Urine 3 /hpf (0-5)
[2023-02-06 13:40] LABS: Basophils % (A) 0 %; Eosinophils # (A) 0.1 k/uL (0-0.7); Eosinophils % (A) 2 %; HCT 32.3 % (34.0-46.0); HGB 10.7 gm/dL (11.4-16.0); Hypochromasia Slight; Lymphocytes # (A) 1.6 k/uL (1.0-4.8); Lymphocytes % (A) 20 %; MCH 26.7 pg (25.0-35.0); MCV 80.8 fL (80.0-100.0); Mean Platelet Volume 8.4; Monocytes # (A) 0.4 k/uL (0-1.0); Monocytes % (A) 5 %; Neutrophils # (A) 5.7 k/uL (1.3-7.7); Neutrophils % (A) 71 %; Platelet Count 282 k/uL (150-450); RBC 3.99 m/uL (3.80-5.40); RDW 15.4 % (11.5-15.5)
[2023-02-06 13:43] LABS: Creatinine,Urine Random 46.6 mg/dL
[2023-02-06 13:44] LABS: Creatinine,Urine Random 45.3 mg/dL; Protein/Creatinine Ratio,Urine 0.243
[2023-02-06 14:00] LABS: ALT 21 U/L (4-34); AST 22 U/L (14-36); African American GFR (CKD) >90 (>60 ml/min/1.73 sqM); Blood Urea Nitrogen 5 mg/dL (7-17); LDH 198 U/L (120-246); Non-African American GFR(CKD) >90 (>60 ml/min/1.73 sqM); Uric Acid 4.9 mg/dL (3.7-7.4)
[2023-02-06] MEDS ORDERED: ACETAMINOPHEN TAB 325 MG TAB PO STA ×2 (14:08)
[2023-02-06] MEDS ORDERED: LABETALOL 200 MG TAB PO STA (15:23)
[2023-02-06] MEDS ORDERED: diphenhydrAMINE 25 MG CAP PO STA (15:25)
[2023-02-06] MEDS ORDERED: LABETALOL 100 MG TAB PO STA (15:26)
--- NOTE | 2023-02-06 18:03 | P.MSEPDOC ---
Presenting Problems - Arrival Data Date of Arrival on Unit: 02/06/23 Time of Arrival on Unit: 12:25 Mode of Transport: Ambulatory - Complaint OB-Reason for Admission/Chief Complaint: PIH Comment: Pt presents to triage after being sent over from the office for a BP of 140/102. Pt to receive PIH workup Medical History - Information : 3 Para: 2 Term: 2 : 0 Abortions: Spontaneous or Elective: 0 Number of Living Children: 2 - Gestational Age Gestational Age by BENJAMÍN (wks/days): 36 Weeks and 2 Days - History Complications: Chronic HTN Comment: Pt has hx of preeclampsia with first Review of Systems - Review of Systems Constitutional: No problems Breast: No problems ENT: No problems Cardiovascular: No problems Respiratory: No problems Gastrointestinal: No problems Genitourinary: No problems Musculoskeletal: No problems Neurological: No problems Skin: No problems Vital Signs - Temperature Temperature: 97.4 F Temperature Source: Temporal Artery Scan - Pulse Pulse Oximetery Pulse Rate: 89 Pulse Assessment Method: Pulse Oximetry - Respirations Respiratory Rate: 18 Oxygen Delivery Method: Room Air O2 Sat by Pulse Oximetry: 99 - Blood Pressure Right Arm Blood Pressure: 124/84 Blood Pressure Mean: 97 Blood Pressure Source: Automatic Cuff Medical Screen Scoring - Assessment - Baby A Baseline FHR: 140 Heart Rate - NICHD Category: Category I (Normal) NST: Reactive Physician Notification - Physician Notified Physician Notified Date: 02/06/23 Physician Notified Time: 14:08 Physician: Ivon Quiles New Order Received: Yes - Notification Comment Comment: Pt is , sent from office following BP 140/102. Pt has chronic htn and hx of preeclampsia in first . BP 120s-130s/70s-80s. Order recieved for 945mg of tylenol, reassess NOLASCO in one hour Maternal Triage Index - Maternal Triage Index Presenting for scheduled procedure w/no complaint: No - Stat/Priority 1 Stat Priority 1: No - Urgent/Priority 2 Urgent Priority 2: Yes Provider Notified: Ivon Quiles Provider Notified Time: 14:08 Criteria Met for Priority 2: Pt presents from office with BP 140/102, headache 5/10, nausea resolved at present, and edema Disposition - Disposition OB Disposition: Triage, Discharge to home Discharge Date: 02/06/23 Discharge Time: 17:10 I agree with the RN Medical Screening Exam: Yes Physician's MSE Comment: I have neither seen nor examined the patient Case reviewed; plan agreed upon as documented in EMR&OBIX.: Yes Diagnosis: RELATED CONDITIONS, UNSPECIFIED, THIRD TRIMESTER
[2023-02-07 15:46] VITALS: BP 124/84; PULSE 89; RESP 18; TEMP 97.4
== END 2023-02-06 17:10 | disposition home or self-care (01) ==
LOC: FBPOP 12:25
PROVIDERS: ATTEND Obstetrics & Gynecology
DX: O26.893 Other specified pregnancy related conditions, third trimester (principal); O13.4 Gestational [pregnancy-induced] hypertension without significant proteinuria, complicating childbirth; O99.333 Smoking (tobacco) complicating pregnancy, third trimester; F17.200 Nicotine dependence, unspecified, uncomplicated; Z37.9 Outcome of delivery, unspecified; Z3A.36 36 weeks gestation of pregnancy; Z79.899 Other long term (current) drug therapy
CPT/HCPCS: 59025; 81001; 82565; 82570; 83615; 84156; 84450; 84460; 84520; 84550; 85025

== ENCOUNTER → 2024-05-06 | Outpatient (CLI) | payer OTHER ==
--- NOTE | 2024-05-06 11:59 | USB ---
Reason for Exam: Clinical finding. Patient History: Menarche at age 12. First Full-Term at age 23. Patient has history of breast feeding. Patient used Hormonal Contraceptives for 20 years. Paternal aunt had breast cancer at or over age 50. Risk Values: Guerline 5 year model risk: 0.5%. NCI Lifetime model risk: 9.1%. Technique: Method: Whole Breast Handheld. Findings: The whole breast of the right breast, the area of palpable concern of the right breast, the axilla of the right breast and the retroareolar of the right breast were scanned. At the 9:00 position approximately 8 cm from the nipple there is a 1.8 x 1.6 cm hypoechoic area. Couple of punctate echogenic areas may be within this area. Additional lobular density extends towards the margins. This appears to extend from the 8:00 position which has some posterior shadowing. Measurements at the approximate 8:00 area is 1.8 x 1.8 x 2.7 cm. In comparison with the mammographic findings these are likely contiguous ultrasound core biopsy for client representative sample approximately 9:00 is recommended. The axilla is examined and there are enlarged lymph nodes with thickened cortex, example thickness 0.6 cm, lymph node size 2.4 x 0.9 cm. A client representative axillary lymph node sample was recommended for suspected metastasis. Overall Assessment: Highly suggestive of malignancy, BI-RAD 5 Management: Ultrasound Core Biopsy of the right breast. A clinical breast exam by your physician is recommended on an annual basis and results should be correlated with mammographic findings. This exam should not preclude additional follow-up of suspicious palpable abnormalities. Results were given to the patient verbally at the time of exam. [facility], , 05/06/2024 11:56 AM. Electronically signed and approved by: Kenny Xavier D.O. Radiologis
--- NOTE | 2024-05-06 12:01 | MM ---
Reason for Exam: Clinical finding. Baseline mammogram. Indicated Problems: Lump or thickening of the right side for 5 Month(s). Patient History: Menarche at age 12. First Full-Term at age 23. Patient has history of breast feeding. Patient used Hormonal Contraceptives for 20 years. Paternal aunt had breast cancer at or over age 50. Last menstrual period: 04/13/2024 Risk Values: Guerline 5 year model risk: 0.5%. NCI Lifetime model risk: 9.1%. Prior Study Comparison: Patient's first Mammogram. Tissue Density: The breasts are heterogeneously dense, which may obscure small masses. Findings: Analyzed By CAD. There is greater increased density within the right breast compared to the left. There is segmental calcifications through the right breast. These are highly suggestive for neoplasm and biopsy is recommended. Left breast: No suspicious groups of microcalcifications, spiculated or lobular masses, architectural distortion or other secondary signs of malignancy are mammographically apparent. Overall Assessment: Incomplete: need additional imaging evaluation, BI-RAD 0 Management: Diagnostic Breast Ultrasound of the right breast. A negative mammogram report should not preclude additional follow up of suspicious palpable abnormalities. Patient should continue monthly self breast exam. A clinical breast exam by your physician is recommended on an annual basis and results should be correlated with mammographic findings. Note on Guerline scores and lifetime risk: 1. A Guerline score greater than 3% is considered moderate risk. If this is the case, consider specialist referral to assess eligibility for a risk reducing agent. 2. If overall lifetime risk for the development of breast cancer is 20% or higher, the patient may qualify for future screening with alternating mammogram and breast MRI. [facility], , 05/06/2024 11:58 AM. Electronically signed and approved by: Kenny Xavier D.O. Radiologis
== END | disposition home or self-care (01) ==
LOC: RADMAMWWP 09:37
PROVIDERS: ATTEND Family Medicine
DX: N63.10 Unspecified lump in the right breast, unspecified quadrant (principal); R92.333 Mammographic heterogeneous density, bilateral breasts
CPT/HCPCS: 77062; 77066

== ENCOUNTER → 2024-06-12 | Day surgery (SDC) | payer OTHER ==
--- NOTE | 2024-06-18 11:24 | MM ---
Reason for Exam: Post Procedure Mammogram. Last screening mammogram was performed 1 month(s) ago. Patient History: Menarche at age 12. First Full-Term at age 23. Patient has history of breast feeding. Patient used Hormonal Contraceptives for 20 years. Paternal aunt had breast cancer at or over age 50. Risk Values: Guerline 5 year model risk: 0.5%. NCI Lifetime model risk: 9.1%. Prior Study Comparison: 05/06/2024 Bilateral MG 3D diag mammo w/cad SANDIP, [facility]. Tissue Density: Right: The breasts are heterogeneously dense, which may obscure small masses. Pathology Description: Location: axilla. Marker Left Behind. Needle Type: Bard 14g x 10cm Cores: 3 Gauge: 14 Pathology Description: Location: 9 o'clock, axilla. Marker Left Behind. Approach: Oblique Needle Type: Celero Cores: 2 Gauge: 13 patient experienced nausea that required no intervention The procedure of ultrasound guided core biopsy was explained to the patient. Benefits, alternatives, and risks were discussed. An informed consent was then obtained. The patient was placed in supine positioning for imaging and for the procedure. Preprocedure ultrasound redemonstrates large ill-defined shadowing mass 9:00 position in the right breast. Abnormal right axillary adenopathy is also redemonstrated. The overlying skin was prepped and draped in usual sterile fashion. Lidocaine buffered with bicarbonate was used as anesthetic into the skin and subcutaneous tissue. Lidocaine with epinephrine is used as anesthetic into the deeper tissue in the right breast. Under ultrasound guidance, a vacuum assisted biopsy gun device was used to obtain 2 core samples of the large right breast mass. Under ultrasound guidance, a 18-gauge Bard device was used to obtain 3 core samples of the abnormal right axillary adenopathy. Following this, biopsy clips were left in both areas. The patient tolerated the procedure well without any immediate complication. The patient was kept in the radiology department for short stay after the procedure and then discharged home in stable condition. Postprocedure mammogram: The patient was transferred to mammography for physician ordered post procedure mammogram for clip placement verification. Post procedure mammogram demonstrates appropriate placement of both clips. Impression: Successful, uncomplicated ultrasound guided core biopsy of area of concern in the right breast, full pathology results to follow. High index of suspicion noted at time of procedure. [facility], , 06/12/2024 12:12 PM. Pathology Results: Result: Malignant, Invasive ductal carcinoma. Pathology and radiology were reviewed. Findings are concordant. A. 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 See Surgical Pathology Cancer Case Summary. B. RIGHT AXILLA LYMPH NODE, NEEDLE CORE BIOPSY: Lymph node positive for micrometastatic mammary ductal carcinoma. Greatest dimension of metastatic tumor deposit measures 1 mm. Extra usama extension is not identified. Overall Assessment: Malignant Assessment: MG diagnostic mammo RT wo CAD - Right: Known biopsy proven malignancy, BI-RAD 6. Management: Surgical Consultation of the right breast. Note the large area of associated segmented calcifications spanning up to 10 cm likely representing DCIS. Electronically signed and approved by: Lion Martinez M.D.
== END ==
LOC: RADUSWWP 10:01
PROVIDERS: ATTEND Surgery
DX: D05.11 Intraductal carcinoma in situ of right breast (principal); R92.8 Other abnormal and inconclusive findings on diagnostic imaging of breast; Z17.0 Estrogen receptor positive status [ER+]; Z80.3 Family history of malignant neoplasm of breast
CPT/HCPCS: 88305; 88342; 88341; 77065; 19083; 19084; 38505; A4648

== ENCOUNTER 2024-07-20 07:40 | Day surgery (SDC) | payer OTHER ==
[~2024-07-20 07:40] MED LIST: LIDOCAINE 1% (10MG/ML) FOR IV START INTRADERMA PRN; Pre Op ABX Message 1 EACH MISC MISCELLANE ONE
[2024-07-20 10:00] VITALS: TEMP 99.3
[2024-07-20] MEDS: IV FLUID CONTINUATION 1,000 ML IV ONE (10:08)
[2024-07-20] MEDS: LACTATED RINGERS 1,000 ML IV SCH (10:10)
[2024-07-20] MEDS: DEXAMETHASONE SOD PHOSPHATE 4 MG/ML 1 ML VIAL IV ONE (10:17)
[2024-07-20] MEDS: ACETAMINOPHEN TAB 500 MG TAB PO PRN (10:17)
[2024-07-20] MEDS: ONDANSETRON 4 MG/2 ML VIAL IVP ONE (10:17)
[2024-07-20] MEDS: HEPARIN SODIUM,PORCINE 5,000 UNIT/ML 1 ML VIAL SQ PRN (10:18)
--- NOTE | 2024-07-20 11:04 | P.GSHP ---
History of Present Illness H&P Date: 07/20/24 Chief Complaint: Right breast cancer 38-year-old female known to our service. Patient recently diagnosed with locally advanced right-sided breast cancer. Patient will be starting neoadjuvant chemotherapy in the very near future. Here today for Port-A-Cath placement. Past Medical History Past Medical History: Asthma, Cancer, Hypertension Additional Past Medical History / Comment(s): current cancer right breast, migraines History of Any Multi-Drug Resistant Organisms: None Reported Past Surgical History: Section, Cholecystectomy Additional Past Surgical History / Comment(s): cyst removal Past Anesthesia/Blood Transfusion Reactions: No Reported Reaction, Motion Sickness Smoking Status: Never smoker - Past Family History Father Family Medical History: No Reported History Medications and Allergies Home Medications Medication Instructions Recorded Confirmed Type Ferrous Sulfate [Feosol] 325 mg PO DAILY 07/16/24 07/17/24 History Vit No.179/Iron/Folic 1 each PO DAILY 07/16/24 07/17/24 History [ Tablet] Vitamin D3/Vitamin K2 (Mk4) 1 each PO DAILY 07/16/24 07/17/24 History [Vitamin K2 Plus D3 Tablet] Allergies Allergy/AdvReac Type Severity Reaction Status Date / Time No Known Allergies Allergy Verified 07/20/24 09:39 Surgical - Exam Vital Signs Temp Pulse Resp BP Pulse Ox 99.3 F 63 18 156/97 99 07/20/24 09:59 07/20/24 09:59 07/20/24 09:59 07/20/24 09:59 07/20/24 09:59 Physical exam: General: Well-developed, well-nourished HEENT: Normocephalic, sclerae nonicteric Abdomen: Nontender, nondistended Extremities: No edema Neuro: Alert and oriented Assessment and Plan (1) Breast cancer, right Narrative/Plan: Will proceed with Port-A-Cath placement at this time. Risks of bleeding, infection, DVT, pneumothorax, catheter malfunction, anesthesia related complications were discussed. The patient understands and wishes to proceed. Current Visit: Yes Status: Acute Code(s): C50.911 - MALIGNANT NEOPLASM OF UNSP SITE OF RIGHT FEMALE BREAST SNOMED Code(s): 086349439
[2024-07-20] MEDS ORDERED: PROPOFOL 10 MG/ML 20 ML VIAL IV ONE (11:29)
[2024-07-20] MEDS ORDERED: LIDOCAINE 1% INJ 10MG/ML (20 ML MDV) ONE (11:29)
[2024-07-20] MEDS ORDERED: MIDAZOLAM 2 MG/2 ML VIAL ONE (11:29)
[2024-07-20] MEDS ORDERED: fentaNYL (PF) 50 MCG/ML 2 ML AMP ONE (11:29)
[2024-07-20] MEDS: IV FLUID CONTINUATION 1,000 ML with ceFAZolin 2,000 MG IV ONE (11:35)
[2024-07-20] MEDS: LIDOCAINE 1% INJ 10MG/ML (30 ML VIAL-PF) SQ ONE (11:35)
[2024-07-20] MEDS ORDERED: NALOXONE 0.4 MG/ML 1 ML VIAL IV PRN (12:28)
[2024-07-20] MEDS ORDERED: traMADol 50 MG TAB PO PRN (12:28)
[2024-07-20 12:53] VITALS: RESP 16
[2024-07-20] MEDS: HYDROmorphone 0.5 MG/0.5 ML SYRINGE IVP PRN (12:59)
[2024-07-20] MEDS: SCOPOLAMINE 1 MG/72 HR PATCH TRANSDERM STA (13:01)
--- NOTE | 2024-07-20 13:20 | P.OP ---
Date of Procedure: 07/20/24 Procedure(s) Performed: PREOPERATIVE DIAGNOSIS: Right breast cancer POSTOPERATIVE DIAGNOSIS: Same PROCEDURE: Port-A-Cath placement with fluoroscopic and ultrasound guidance SURGEON: Cris EBL: 5 cc ANESTHESIA: General COMPLICATIONS: None OPERATIVE PROCEDURE: Patient was brought and placed on the operative table in the supine position. The patient was placed under general anesthesia at that time. The chest and neck were prepped and draped in usual sterile fashion. The ultrasound probe was used to identify the location of the left internal jugular vein. The skin was localized with lidocaine. The Seldinger needle was advanced into the IJ under ultrasound guidance. The wire was advanced through the needle under fluoroscopic guidance into the superior vena cava. A port pocket was created in the left infraclavicular location. The catheter was tunneled from the wire entrance site to the port pocket. The port was then connected to the catheter. The dilator introducer was threaded over the guidewire. The guidewire and dilator were then removed. The catheter was advanced through the introducer and introducer was then removed. The tip was seen to be in the right atrial junction via fluoroscopy. A picture of the radiograph showing the tip of the catheter was taken. Port was flushed with both saline and a Hep-Lock solution. There was good flow both in and out of the port. The port was sutured in underlying tissues using 3-0 silk sutures. The subcutaneous tissues were reapproximated using 3-0 Vicryl sutures and the skin at both locations using 4-0 Monocryl sutures. Skin glue and sterile dressings then applied. DISPOSITION: Stable to recovery room
--- NOTE | 2024-07-20 13:41 | XR ---
EXAMINATION TYPE: XR chest 1V confirm [facility] DATE OF EXAM: 07/20/2024 COMPARISON: Chest x-ray February 24, 2023 CLINICAL INDICATION: Female, 38 years old with history of Check Line; TECHNIQUE: Single frontal view of the chest is obtained. FINDINGS: There is new left internal jugular Mediport catheter terminating in right atrium. Bilatera l lungs are clear without pneumothorax. The cardiac silhouette size is stable and within normal limi ts. The osseous structures are intact. IMPRESSION: As above. [facility], , 07/20/2024 1:39 PM
[2024-07-20 13:48] VITALS: BP 128/76; PULSE 77
--- NOTE | 2024-07-20 14:33 | FL ---
EXAMINATION TYPE: FL guided central line placemt DATE OF EXAM: 07/20/2024 CLINICAL HISTORY: Port-A-Cath TECHNIQUE: Fluoroscopy. COMPARISON: None. FINDINGS: Fluoroscopic guidance was provided during Port-A-Cath insertion procedure performed by Dr. Lynch. A total of 10.6 seconds of fluoroscopic time was utilized during the procedure and 1 spot im ages was acquired. Total dose area product (DAP) in uGy*m?, mGy*cm? (or similar: 0.6406. Single intr aoperative image shows left internal jugular Mediport catheter. IMPRESSION: As Above. [facility], , 07/20/2024 2:31 PM
== END 2024-07-20 14:20 | disposition home or self-care (01) ==
LOC: OR 07:40
PROVIDERS: ATTEND Surgery
DX: C50.411 Malignant neoplasm of upper-outer quadrant of right female breast (principal); I10 Essential (primary) hypertension; J45.909 Unspecified asthma, uncomplicated; Z90.49 Acquired absence of other specified parts of digestive tract
CPT/HCPCS: 77001; 36561; J1644; J1100; J2405; J0690; J2003; J1642; J1171; 81025

== ENCOUNTER → 2024-07-20 | Outpatient (CLI) | payer OTHER | END | disposition home or self-care (01) | LOC: RADMRIMAIN 07-15 11:03 | PROVIDERS: ATTEND Surgery | DX: Z53.9 Procedure and treatment not carried out, unspecified reason (principal) | CPT/HCPCS: 77049; A9585 ==

== ENCOUNTER 2024-07-23 15:48 | Emergency (ER) | payer OTHER ==
--- NOTE | 2024-07-23 16:20 | ED ---
Recheck HPI - General Source: patient, family, RN notes reviewed Mode of arrival: ambulatory Limitations: no limitations <Sirena Herman - Last Filed: 07/23/24 16:19> - General Source: patient, RN notes reviewed Mode of arrival: ambulatory Limitations: no limitations <Arturo Mclaughlin - Last Filed: 07/23/24 19:59> - General Chief Complaint: Recheck/Abnormal Lab/Rx Stated Complaint: chest pain post op Time Seen by Provider: 07/23/24 16:19 - History of Present Illness Initial Comments: Quick note: 38-year-old female presented to the ER for evaluation of right-sided chest discomfort. Patient currently has breast cancer and is scheduled to start chemo soon. She had port placed on Saturday with Dr. Lynch. Oncologist is Dr. Dunbar. Patient was reporting pain to the right side of her chest with mild d izziness. No shortness of breath. Significant other, at bedside, states she appears winded. No fevers or chills. No drainage or redness from port. (Sirena Herman) Patient is a 38-year-old female present to the emergency department with concerns with right-sided chest discomfort. Patient did have a port placed a few days ago on the left side. Patient has had discomfort on the right side since that time. Patient states it is deep right sided. Patient states it is present more with deep breaths and movements. No history of similar symptoms previously. (Arturo Mclaughlin) - Related Data Home Medications Medication Instructions Recorded Confirmed Ferrous Sulfate [Feosol] 325 mg PO DAILY 07/16/24 07/17/24 Vit No.179/Iron/Folic 1 each PO DAILY 07/16/24 07/17/24 [ Tablet] Vitamin D3/Vitamin K2 (Mk4) 1 each PO DAILY 07/16/24 07/17/24 [Vitamin K2 Plus D3 Tablet] Previous Rx's Medication Instructions Recorded traMADol HCl [Ultram] 50 mg PO Q6H PRN #6 tab 07/20/24 Allergies Allergy/AdvReac Type Severity Reaction Status Date / Time No Known Allergies Allergy Verified 07/23/24 16:03 Review of Systems ROS Other: All systems not noted in ROS Statement are negative. <Sirena Herman - Last Filed: 07/23/24 16:19> ROS Other: All systems not noted in ROS Statement are negative. Constitutional: Denies: fever Eyes: Denies: eye pain ENT: Denies: ear pain Respiratory: Denies: cough, dyspnea Cardiovascular: Reports: as per HPI Endocrine: Denies: fatigue Gastrointestinal: Denies: abdominal pain Genitourinary: Denies: dysuria Musculoskeletal: Denies: back pain Skin: Denies: rash Neurological: Denies: weakness <Arturo Mclaughlin - Last Filed: 07/23/24 19:59> ROS Statement: Those systems with pertinent positive or pertinent negative responses have been documented in the HPI. Past Medical History Past Medical History: Asthma, Cancer, Hypertension Additional Past Medical History / Comment(s): current cancer right breast- stage 3 07-23-2024, migraines History of Any Multi-Drug Resistant Organisms: None Reported Past Surgical History: Section, Cholecystectomy Additional Past Surgical History / Comment(s): cyst removal Past Anesthesia/Blood Transfusion Reactions: No Reported Reaction, Motion Sickness Past Psychological History: ADD/ADHD Smoking Status: Never smoker Past Alcohol Use History: None Reported Past Drug Use History: Marijuana - Past Family History Father Family Medical History: No Reported History <Sirena Herman - Last Filed: 07/23/24 16:19> General Exam Limitations: no limitations <Sirena Herman - Last Filed: 07/23/24 16:19> Limitations: no limitations General appearance: alert, in no apparent distress Head exam: Present: normocephalic Eye exam: Present: normal appearance Neck exam: Present: normal inspection Respiratory exam: Present: normal lung sounds bilaterally. Absent: chest wall tenderness Cardiovascular Exam: Present: regular rate, normal rhythm, normal heart sounds Expanded Peripheral pulses: 2+: Radial (R) GI/Abdominal exam: Present: soft. Absent: tenderness Extremities exam: Present: normal inspection. Absent: pedal edema, calf tenderness Neurological exam: Present: alert Psychiatric exam: Present: normal affect, normal mood Skin exam: Present: normal color <Arturo Mclaughlin - Last Filed: 07/23/24 19:59> - General Exam Comments Initial Comments: Visual Physical Exam Vital signs reviewed General: Well-appearing, nontoxic, no acute distress. Head: Normocephalic, atraumatic Eyes: PERRLA, EOMI ENT: Airway patent Chest: Nonlabored breathing Skin: No visual rash, normal skin tone Neuro: Alert and oriented 3 Musculoskeletal: No gross abnormalities (Sirena Herman) Course Vital Signs 07/23/24 07/23/24 07/23/24 15:59 17:52 19:32 Temperature 98.1 F Pulse Rate 86 75 74 Respiratory 17 19 17 Rate Blood Pressure 162/127 155/104 149/92 O2 Sat by Pulse 100 100 99 Oximetry Medical Decision Making <Sirena Herman - Last Filed: 07/23/24 16:19> - Lab Data Result diagrams: 07/23/24 17:40 07/23/24 18:07 <Arturo Mclaughlin - Last Filed: 07/23/24 19:59> - Medical Decision Making I performed the quick note portion of this chart. Electronically signed by Sirena Herman PA-C (Sirena Herman) EKG interpreted by myself shows sinus rhythm of 87. First degree AV block with a SC of 206. Normal axis. Normal QRS. No acute ST change. Was pt. sent in by a medical professional or institution (DELFINO Carrera, CLAIM REVIEW MEDICAL DIRECTOR, urgent care, hospital, or intermediate...) When possible be specific @ -No Did you speak to anyone other than the patient for history (EMS, parent, family, police, friend...)? What history was obtained from this source @ -No Did you review nursing and triage notes (agree or disagree)? Why? @ -I reviewed and agree with nursing and triage notes Were old charts reviewed (outside hosp., previous admission, EMS record, old EKG, old radiological studies, urgent care reports/EKG's, intermediate records)? Report findings @ -No old charts were reviewed Differential Diagnosis (chest pain, altered mental status, abdominal pain women, abdominal pain men, vaginal bleeding, weakness, fever, dyspnea, syncope, headache, dizziness, GI bleed, back pain, seizure, CVA, palpatations, mental health, musculoskeletal)? @ -Differential Chest Pain: Stable Angina, Unstable Angina, STEMI, NSTEMI Aortic Dissection, Pneumothorax, Musculoskeletal, Esophageal Spasm GERD, Cholecystitis, Pancreatitis, Zoster, this is not meant to be an all-inclusive list. EKG interpreted by me (3pts min.). @ -As above X-rays interpreted by me (1pt min.). @ -Chest x-ray shows port in place. No acute abnormality. No pneumothorax. CT interpreted by me (1pt min.). @ -CT scan of chest unremarkable other than some lymph nodes. U/S interpreted by me (1pt. min.). @ -None done What testing was considered but not performed or refused? (CT, X-rays, U/S, labs)? Why? @ -None What meds were considered but not given or refused? Why? @ -None Did you discuss the management of the patient with other professionals (professionals i.e. , PA, CLAIM REVIEW MEDICAL DIRECTOR, lab, RT, psych nurse, social scientist, sql report analyst, teacher, correctional officer, high risk case manager)? Give summary @ -No Was smoking cessation discussed for >3mins.? @ -No Was critical care preformed (if so, how long)? @ -No Were there social determinants of health that impacted care today? How? (Homelessness, low income, unemployed, alcoholism, drug addiction, transportation, low edu. Level, literacy, decrease access to med. care, long term, rehab)? @ -No Was there de-escalation of care discussed even if they declined (Discuss DNR or withdrawal of care, Hospice)? DNR status @ -No What co-morbidities impacted this encounter? (DM, HTN, Smoking, COPD, CAD, Cancer, CVA, ARF, Chemo, Hep., AIDS, mental health diagnosis, sleep apnea, morbid obesity)? @ -History of recent port placement Was patient admitted / discharged? Hospital course, mention meds given and route, prescriptions, significant lab abnormalities, going to OR and other pertinent info. @ -Patient presents with right-sided chest discomfort that is with position changes and deep breaths. Imaging and testing otherwise unremarkable. Patient reevaluated with some improvement. Patient is updated on results and plan. Undiagnosed new problem with uncertain prognosis? @ -No Drug Therapy requiring intensive monitoring for toxicity (Heparin, Nitro, Insulin, Cardizem)? @ -No Were any procedures done? @ -No Diagnosis/symptom? @ -Right sided chest pain Acute, or Chronic, or Acute on Chronic? @ -Acute Uncomplicated (without systemic symptoms) or Complicated (systemic symptoms)? @ -Default Side effects of treatment? @ -No Exacerbation, Progression, or Severe Exacerbation? @ -No Poses a threat to life or bodily function? How? (Chest pain, [place], [place], pneumonia, PE, COPD, DKA, ARF, appy, cholecystitis, CVA, Diverticulitis, Homicidal, S uicidal, threat to staff... and all critical care pts) @ -No (Arturo Mclaughlin) - Lab Data Lab Results 07/23/24 07/23/24 07/23/24 Range/Units 17:40 18:07 18:07 WBC 7.4 (3.8-10.6) k/uL RBC 5.29 (3.80-5.40) m/uL Hgb 11.6 (11.4-16.0) gm/dL Hct 40.2 (34.0-46.0) % MCV 76.0 L (80.0-100.0) fL MCH 21.9 L (25.0-35.0) pg MCHC 28.8 L (31.0-37.0) g/dL RDW 17.7 H (11.5-15.5) % Plt Count 407 (150-450) k/uL MPV 7.9 Neutrophils % 68 % Lymphocytes % 24 % Monocytes % 4 % Eosinophils % 3 % Basophils % 0 % Neutrophils # 5.0 (1.3-7.7) k/uL Lymphocytes # 1.8 (1.0-4.8) k/uL Monocytes # 0.3 (0-1.0) k/uL Eosinophils # 0.2 (0-0.7) k/uL Basophils # 0.0 (0-0.2) k/uL Hypochromasia Marked Anisocytosis Slight Microcytosis Slight PT (10.0-12.5) sec INR (<1.2) APTT (22.0-30.0) sec Sodium 139 (137-145) mmol/L Potassium 4.0 (3.5-5.1) mmol/L Chloride 106 (98-107) mmol/L Carbon Dioxide 25 (22-30) mmol/L Anion Gap 8 mmol/L BUN 14 (7-17) mg/dL Creatinine 0.66 (0.52-1.04) mg/dL Est GFR (CKD-EPI)AfAm >90 (>60 ml/min/1.73 sqM) Est GFR (CKD-EPI)NonAf >90 (>60 ml/min/1.73 sqM) Glucose 91 (74-99) mg/dL Calcium 9.7 (8.4-10.2) mg/dL Magnesium 2.1 (1.6-2.3) mg/dL Total Bilirubin 0.3 (0.2-1.3) mg/dL AST 21 (14-36) U/L ALT 21 (4-34) U/L Alkaline Phosphatase 69 (38-126) U/L Troponin I <0.012 (0.000-0.034) ng/mL Total Protein 7.4 (6.3-8.2) g/dL Albumin 4.7 (3.5-5.0) g/dL 07/23/24 Range/Units 18:07 WBC (3.8-10.6) k/uL RBC (3.80-5.40) m/uL Hgb (11.4-16.0) gm/dL Hct (34.0-46.0) % MCV (80.0-100.0) fL MCH (25.0-35.0) pg MCHC (31.0-37.0) g/dL RDW (11.5-15.5) % Plt Count (150-450) k/uL MPV Neutrophils % % Lymphocytes % % Monocytes % % Eosinophils % % Basophils % % Neutrophils # (1.3-7.7) k/uL Lymphocytes # (1.0-4.8) k/uL Monocytes # (0-1.0) k/uL Eosinophils # (0-0.7) k/uL Basophils # (0-0.2) k/uL Hypochromasia Anisocytosis Microcytosis PT 10.7 (10.0-12.5) sec INR 1.0 (<1.2) APTT 23.2 (22.0-30.0) sec Sodium (137-145) mmol/L Potassium (3.5-5.1) mmol/L Chloride (98-107) mmol/L Carbon Dioxide (22-30) mmol/L Anion Gap mmol/L BUN (7-17) mg/dL Creatinine (0.52-1.04) mg/dL Est GFR (CKD-EPI)AfAm (>60 ml/min/1.73 sqM) Est GFR (CKD-EPI)NonAf (>60 ml/min/1.73 sqM) Glucose (74-99) mg/dL Calcium (8.4-10.2) mg/dL Magnesium (1.6-2.3) mg/dL Total Bilirubin (0.2-1.3) mg/dL AST (14-36) U/L ALT (4-34) U/L Alkaline Phosphatase (38-126) U/L Troponin I (0.000-0.034) ng/mL Total Protein (6.3-8.2) g/dL Albumin (3.5-5.0) g/dL Disposition <Sirena Herman - Last Filed: 07/23/24 16:19> Is patient prescribed a controlled substance at d/c from ED?: No Time of Disposition: 19:58 <Arturo Mclaughlin - Last Filed: 07/23/24 19:59> Clinical Impression: Right-sided chest pain Disposition: HOME SELF-CARE Condition: Stable Instructions (If sedation given, give patient instructions): Chest Pain (ED), Chest Wall Pain (ED) Additional Instructions: Please do follow-up with primary care physician and your surgeon in the next couple of days for recheck. Return for increased pain, difficulty breathing, fever, worsening or changing symptoms or any other concerns. Please also have your doctor recheck your blood pressure. Referrals: Yoni Lee Jr, [Primary Care Provider] - 1-2 days Adam Lynch MD [Medical Doctor] - 1-2 days
[2024-07-23] MEDS: KETOROLAC 15 MG/ML 1 ML VIAL IVP STA (17:49)
[2024-07-23 17:57] LABS: Anisocytosis Slight; Basophils % (A) 0 %; Eosinophils # (A) 0.2 k/uL (0-0.7); Eosinophils % (A) 3 %; HCT 40.2 % (34.0-46.0); HGB 11.6 gm/dL (11.4-16.0); Hypochromasia Marked; Lymphocytes # (A) 1.8 k/uL (1.0-4.8); Lymphocytes % (A) 24 %; MCH 21.9 pg (25.0-35.0); MCHC 28.8 g/dL (31.0-37.0); Mean Platelet Volume 7.9; Microcytosis Slight; Monocytes # (A) 0.3 k/uL (0-1.0); Monocytes % (A) 4 %; Neutrophils % (A) 68 %; Platelet Count 407 k/uL (150-450); RBC 5.29 m/uL (3.80-5.40); RDW 17.7 % (11.5-15.5); WBC 7.4 k/uL (3.8-10.6)
--- NOTE | 2024-07-23 18:02 | XR ---
EXAMINATION TYPE: XR chest 2V DATE OF EXAM: 07/23/2024 5:57 PM COMPARISON: None. CLINICAL INDICATION: Female, 38 years old with history of Chest Pain, TECHNIQUE: XR chest 2V view(s) obtained. FINDINGS: The heart size is normal. The pulmonary vasculature is normal. The lungs are clear. Port is present on the right IMPRESSION: 1. No acute pulmonary process. [facility], , 07/23/2024 5:59 PM
[2024-07-23 18:28] LABS: Partial Thromboplastin Time 23.2 sec (22.0-30.0); Prothrombin Time 10.7 sec (10.0-12.5)
[2024-07-23 18:36] LABS: ALT 21 U/L (4-34); AST 21 U/L (14-36); African American GFR (CKD) >90 (>60 ml/min/1.73 sqM); Albumin 4.7 g/dL (3.5-5.0); Alkaline Phosphatase 69 U/L (38-126); Anion Gap 8 mmol/L; Blood Urea Nitrogen 14 mg/dL (7-17); Calcium 9.7 mg/dL (8.4-10.2); Carbon Dioxide 25 mmol/L (22-30); Chloride 106 mmol/L (98-107); Glucose 91 mg/dL (74-99); Magnesium 2.1 mg/dL (1.6-2.3); Non-African American GFR(CKD) >90 (>60 ml/min/1.73 sqM); Sodium 139 mmol/L (137-145); Total Bilirubin 0.3 mg/dL (0.2-1.3); Total Protein 7.4 g/dL (6.3-8.2)
--- NOTE | 2024-07-23 19:01 | CT ---
EXAMINATION TYPE: CT angio chest DATE OF EXAM: 07/23/2024 6:51 PM COMPARISON: None. CLINICAL INDICATION: Female, 38 years old with history of R cp, Pts arrives in [facility] for right side ches t pain. pt had port placed on left side for chemo on Saturday and states since procedure her right side of chest has been hurting. No signs of infection noted per pt and pt denies any radiation of pain., TECHNIQUE: CT of the chest is performed on a spiral scan at 2 mm thick sections. Study is performed with intravenous contrast timed for evaluation for pulmonary embolism. This will limit additional po rtions of the evaluation. 3-D MIP images reconstructed by the technologist are reviewed on the compu ter in the coronal and sagittal planes. Contrast used:100 ml mL of Isovue 370 with IV Contrast, (none if empty) Oral contrast used: (none if empty) CT DLP: 370.1 mGycm, Automated exposure control for dose reduction was used. FINDINGS: No persistent filling defects are evident to suggest an acute pulmonary embolism. No mediastinal or hilar adenopathy enlarged by CT criteria is evident. The ascending aorta diameter at the level of the main pulmonary artery is 3.4 cm. The main pulmonary artery diameter at the bifurcation is 2.4 cm. There is a port on the left with the tip in the junct ion of the superior vena cava right atrium. Tiny amount of subcutaneous air from the procedure or inj ection is adjacent. No suspicious adjacent collection to suggest infection. Lung windows are clear. There are enlarged right axillary lymph nodes measuring 1.6 and 1.4 cm in size. Additional shotty lym phadenopathy is present bilaterally. Limited CT sections were through the upper abdomen. Upper abdomen appears unremarkable. IMPRESSION: 1. No acute pulmonary embolism. 2. No acute pulmonary process. 3. No suspicious abnormality for right-sided chest pain. 4. Enlarged right axillary lymph nodes. [facility], , 07/23/2024 6:59 PM
[2024-07-23] MEDS: HYDROmorphone 1 MG/ML 1 ML SYRINGE IVP STA (20:10)
[2024-07-23 20:13] VITALS: BP 164/100; PULSE 72; RESP 18; TEMP 97.6
== END 2024-07-23 20:22 | disposition home or self-care (01) ==
LOC: EC 15:48
DX: R07.89 Other chest pain (principal); Z95.828 Presence of other vascular implants and grafts
CPT/HCPCS: 36415; 93005; 80053; 83735; 84484; 85025; 85610; 85730; 71046; 71275; 99285; 96374; 96375; J1171; J1885; Q9967

== ENCOUNTER → 2024-11-16 | Outpatient (CLI) | payer OTHER, SELFPAY ==
--- NOTE | 2024-11-23 12:57 | BMR ---
EXAM DATE: 11/16/2024 EXAM DESCRIPTION: MRI-Breast Bilat (W/WO Contrast) INDICATION: Right breast cancer, to evaluate treatment response COMPARISON: Comparison was made to prior relevant imaging available in PACS TECHNIQUE: Multiplanar multisequence breast MRI was performed prior to and after administration of 8 cc of gadobutrol intravenously. Post processing was performed utilizing a i[employer] workstation. The technical portion of this study was performed at [facility] with radiological interpretation by [facility] radiology. FINDINGS: There is mild, symmetric background parenchymal enhancement in breasts that are composed of scattered fibroglandular tissue.. RIGHT BREAST: Residual segmental non mass enhancement in the central outer breast measures grossly 6.5 x 2.5 x 2.0 cm (AP x trans x cc) and is compatible with residual malignancy. Overall the burden of disease in the right breast is decreased when compared to 07/20/2024. Otherwise, no suspicious enhancement patterns or other abnormalities. LEFT BREAST: Subtle segmental non mass enhancement in the upper outer anterior to mid depth of the breast measures approximately 3.0 cm in length and is decreased in conspicuity when compared to 07/20/2024 (series 605, image 476 and series 701, image 48). Otherwise, no suspicious enhancement patterns or other abnormalities in the breast. LYMPH NODES: Previously enlarged right axillary lymph nodes are decreased in size with the largest current limb measuring 1.3 x 0.7 cm (series 3 series 501, image 96), previously 2.2 x 1.7 cm. IMPRESSION: Right breast: BI-RADS Category 0-[id number] malignancy. Overall, decreased burden of malignancy in the right breast when compared to 07/20/2024 with residual abnormal non mass enhancement in the central outer breast measuring grossly 6.5 x 2.5 x 2.0 cm. Interval resolution of prior right axillary lymphadenopathy. No definitely enlarged axillary or internal mammary lymph nodes at this time. Recommendation: Continue oncological care. Left breast: BI-RADS Category 4-suspicious. Residual subtle segmental non mass enhancement in the upper outer anterior to mid depth of the breast approximately 3.0 cm in maximum length, decreased in conspicuity when compared to 07/20/2024. If not previously evaluated, as recommended on prior MRI, this is considered indeterminate in etiology, and could be either benign or malignant in etiology. OVERALL ASSESSMENT- BI-RADS 6 ANNUAL SCREENING BREAST MRI IN ADDITION TO MAMMOGRAPHY IS RECOMMENDED IN PATIENTS WITH LIFETIME RISK OF BREAST CANCER >20% MTDD
== END | disposition home or self-care (01) ==
LOC: RADMRIMAIN 10:56
PROVIDERS: ATTEND Internal Medicine
DX: C50.411 Malignant neoplasm of upper-outer quadrant of right female breast (principal); N63.20 Unspecified lump in the left breast, unspecified quadrant; Z85.3 Personal history of malignant neoplasm of breast
CPT/HCPCS: 77049; A9585